=== PATIENT | male | born 1935 | race Caucasian/White ===

== ENCOUNTER 2016-10-05 14:49 | Emergency (ER) | payer OTHER, MEDICAID ==
[2016-10-05 14:55] VITALS: BP 185/93; BMI 28.1
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
== END 2016-10-05 16:59 | disposition home or self-care (01) ==
LOC: ER 14:49
DX: S13.9XXA Sprain of joints and ligaments of unspecified parts of neck, initial encounter (principal); S16.1XXA Strain of muscle, fascia and tendon at neck level, initial encounter; S83.91XA Sprain of unspecified site of right knee, initial encounter; S43.402A Unspecified sprain of left shoulder joint, initial encounter; S39.012A Strain of muscle, fascia and tendon of lower back, initial encounter; V49.9XXA Car occupant (driver) (passenger) injured in unspecified traffic accident, initial encounter
CPT/HCPCS: 72125; 72131; 73030; 73560; 99283